=== PATIENT | female | born 1985 | race Caucasian/White ===

== ENCOUNTER 2017-09-30 12:32 | Emergency (ER) | payer OTHER ==
[~2017-09-30] VITALS: Ht 154.9 cm; Wt 120.2 kg
[2017-09-30 12:35] VITALS: BP 132/87
[2017-09-30] MEDS ORDERED: HYDROmorphone PFS 2 MG/ML SYR IVP ONE (13:00)
[2017-09-30] MEDS ORDERED: KETOROLAC 30 MG/ML VIAL IVP ONE (13:00)
[2017-09-30] MEDS ORDERED: ONDANSETRON 4 MG/2 ML VIAL IVP ONE (13:00)
[2017-09-30] MEDS ORDERED: NACL 0.9% 1,000 ML IV SCH (13:00)
[2017-09-30 13:40] LABS: ANION GAP 13.4 (8-16); BASOPHILS # (AUTO) 0.7 K/uL (0.00-0.22); BASOPHILS % (AUTO) 4.9 % (0.0-2.0); CARBON DIOXIDE 23.7 mmol/L (21-32); CREATININE 0.7 mg/dL (0.6-1.3); EOSINOPHILS # (AUTO) 0.2 K/uL (0-0.4); EOSINOPHILS % (AUTO) 1.3 % (0.0-4.0); HEMATOCRIT 36.9 % (36-48); HEMOGLOBIN 12.4 g/dL (12.0-16.0); LYMPHOCYTES # (AUTO) 3.2 K/uL (2.5-16.5); LYMPHOCYTES % (AUTO) 21.4 % (20.5-51.1); MEAN CORPUSCULAR HEMOGLOBIN 28 pg (27-31); MEAN CORPUSCULAR HGB CONC 34 g/dL (33-37); MEAN CORPUSCULAR VOLUME 84 fL (80-94); MONOCYTES # (AUTO) 0.5 K/uL (0.8-1.0); MONOCYTES % (AUTO) 3.6 % (1.7-9.3); NEUTROPHILS # (AUTO) 10.2 K/uL (1.8-7.7); NEUTROPHILS % (AUTO) 68.8 % (42.2-75.2); PLATELET COUNT (AUTO) 342 K/uL (140-450); POTASSIUM 4.1 mmol/L (3.5-5.1); RED BLOOD CELL COUNT(AUTO) 4.41 MIL/uL (4.20-5.40); RED CELL DISTRIBUTION WIDTH 13.5 % (11.6-13.7); WHITE BLOOD COUNT (AUTO) 14.8 K/uL (4.8-10.8)
[2017-09-30 13:46] LABS: ALBUMIN 3.4 g/dL (3.4-5.0); TOTAL BILIRUBIN 0.4 mg/dL (0.0-1.0)
[2017-09-30 14:05] LABS: BILIRUBIN,URINE NEGATIVE (NEGATIVE); BLOOD, URINE 3+ (NEGATIVE); COLOR,URINE YELLOW (YELLOW); LEUKOCYTE ESTERASE ,URINE 2+ (NEGATIVE); NITRITE, URINE NEGATIVE (NEGATIVE); UGLUCOSE NEGATIVE (NEGATIVE)
[2017-09-30 14:28] LABS: APPEARANCE,URINE HAZY (CLEAR)
[2017-09-30 14:35] LABS: RBC,URINE 11-20 (MOD) /HPF (0-5); WBC,URINE 16-25 (MOD) /HPF (0-5)
[2017-09-30 15:53] VITALS: BP 127/64
== END 2017-09-30 15:53 | disposition home or self-care (01) ==
LOC: MED 12:32
DX: O26.891 Other specified pregnancy related conditions, first trimester (principal); R10.9 Unspecified abdominal pain; Z3A.01 Less than 8 weeks gestation of pregnancy
CPT/HCPCS: 36415; 76817; 80053; 81001; 81025; 82150; 83690; 84702; 84703; 85025; 86900; 86901; 87086; 96360; 99285; J1170; J1885; J2405; J7030; Q0092